=== PATIENT | female | born 1945 | race African-American/Black ===

== ENCOUNTER 2020-09-23 06:28 | Outpatient (CLI) | payer MEDICARE ==
[2020-09-23 11:41] LABS: #Eosinphils 0.1 10x3/uL (0.0-0.5); #Monocytes 0.4 10x3/uL (0.0-1.1); #Neutrophils 4.7 10x3/uL (1.5-8.4); %Basophils 0.6 % (0.0-2.0); %Eosinophils 1.4 % (0.0-6.0); %Lymphocytes 17.2 % (18.0-47.0); %Monocytes 6.6 % (0.0-10.0); %Neutrophils 73.9 % (40.0-75.0); Hemoglobin 12.6 g/dL (12.0-16.0); Mean Corpuscular Hemoglobin 30.4 PG (27.0-33.0); Mean Corpuscular Volume 98.1 fl (80.0-100.0); Mean Platelet Volume 10.4 fl (7.4-10.4); Platelet Count 274 10x3/uL (130-400); RBC Distribution Width 13.6 % (11.5-14.5); Red Blood Cell (RBC) Count 4.15 10x6/uL (3.90-5.20); White Blood Cell (WBC) Count 6.4 10x3/uL (4.5-11.0)
[2020-09-23 11:52] LABS: Anion Gap 16 mmol/L (10-20); BUN (Urea Nitrogen) 17 mg/dL (9.8-20.1); Calc. Creatinine Clearance 0 mL/min (70-130); Calcium 9.7 mg/dL (7.8-10.44); Carbon Dioxide 29 mmol/L (23-31); Chloride 101 mmol/L (98-107); Estimated GFR-MDRD 69; Glucose 208 mg/dL (83-110); Potassium 4.3 mmol/L (3.5-5.1); Sodium 142 mmol/L (136-145)
[2020-09-23 23:43] LABS: SARS-CoV-2 MS2 Positive; SARS-CoV-2 N Gene Negative; SARS-CoV-2 S Gene Negative; SARS-CoV-2 by NAA Not Detected (NotDetected); SARS-CoV-2 orf1ab Negative
== END 2020-09-23 06:29 | disposition home or self-care (01) ==
LOC: LABBT 06:28
PROVIDERS: ATTEND Neurological Surgery
DX: Z01.818 Encounter for other preprocedural examination (principal); Z20.828 Contact with and (suspected) exposure to other viral communicable diseases; G95.9 Disease of spinal cord, unspecified
CPT/HCPCS: 80048; 85025; 93005; U0003; 87635; 93010

== ENCOUNTER 2020-09-26 06:19 | Day surgery (SDC) | payer MEDICARE ==
[2020-09-25 13:43] VITALS: BMI 34.4
--- NOTE | 2020-09-25 22:18 | HP ---
HISTORY OF PRESENT ILLNESS: Ms. Bolton is a very pleasant 75-year-old woman referred to us by her pain management physician Dr. Slaughter at [facility] for evaluation of severe cervical spinal canal stenosis with T2 signal change within the cord. This is mostly found from the C3-C5 for the last few months. 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 She has received epidural steroid injections and states this does seem to have helped some of her symptoms. She reports also some occasional bowel issues though, otherwise feels mostly fine. MRI from [facility] reveals profound central canal stenosis between C3-C5 with signal change from C4-C5 within the cervical spinal cord. PAST MEDICAL HISTORY: Significant for hypercholesterolemia, anemia, osteoarthritis, breast cancer, hypertension, cataracts, diabetes, hypothyroidism. PAST SURGICAL HISTORY: Hysterectomy, cholecystectomy, right mastectomy, cataract resection, and right shoulder rotator cuff repair. CURRENT MEDICATIONS: Aspirin, carvedilol, conjugated estrogens, folate, hydrochlorothiazide, insulin, Invokana, latanoprost, levothyroxine, naproxen, pioglitazone, simvastatin, vitamin B12. ALLERGIES: NO KNOWN DRUG ALLERGIES. PHYSICAL EXAMINATION: Deferred for telehealth visit. 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 PLAN: Dr. Levy met with the patient, reviewed imaging, and advocated for posterior cervical decompression from C3-C5. He explained the risks, benefits, and alternatives to the procedure. The patient expressed understanding and elected to move forward with surgery as discussed. I do believe the patient mentally competent and capable of making medical decisions for herself. We will move forward with surgery as planned. Job ID: [id number]
[2020-09-26] MEDS ORDERED: EPINEPHrine 1 MG/ML AMP ONE (08:42)
[2020-09-26] MEDS ORDERED: Bupivacaine PF 0.5% 30 ML VIAL ONE (08:42)
[2020-09-26] MEDS ORDERED: Fentanyl 100 MCG/2 ML VIAL ONE ×3 (08:44→11:26)
[2020-09-26] MEDS ORDERED: Bacitracin Zinc Ointment 30 gm TUBE ONE (08:56)
[2020-09-26] MEDS ORDERED: Phenylephrine 10 MG/ML VIAL ONE (09:33)
[2020-09-26] MEDS ORDERED: SUGAMMADEX SODIUM 200 MG/2 ML VIAL ONE (10:38)
[2020-09-26] MEDS ORDERED: Promethazine HCl 25 MG/ML VIAL ONE ×2 (11:00→12:38)
[2020-09-26] MEDS ORDERED: Ondansetron PF 4 MG/2 ML Vial ONE ×2 (11:00→12:50)
[2020-09-26] MEDS ORDERED: Promethazine HCl 25 MG/ML VIAL IM PRN (11:02)
[2020-09-26] MEDS ORDERED: HYDROmorphone 2 MG/ML VIAL SLOW IVP PRN (11:02)
[2020-09-26] MEDS ORDERED: Ondansetron HCl/PF 4 MG/2 ML Vial IVP PRN (11:02)
[2020-09-26] MEDS ORDERED: Morphine Sulfate 2 MG/ML SYRINGE SLOW IVP PRN (11:02)
[2020-09-26] MEDS ORDERED: Promethazine HCl 25 MG/ML VIAL SLOW IVP PRN (11:02)
[2020-09-26] MEDS ORDERED: PACU-Morphine 4MG/ML VIAL SLOW IVP PRN (11:02)
[2020-09-26] MEDS ORDERED: tiZANidine HCl 4 MG TAB ONE (11:24)
--- NOTE | 2020-09-26 11:51 | OP ---
DATE OF PROCEDURE: 09/26/2020 [employer] CEO & PRESIDENT: Segun Aldrich PA-C. INDICATION: Prevent neurologic decline. DIAGNOSIS: Cervical spondylotic myelopathy. PROCEDURE PERFORMED: Posterior cervical laminectomy, C3 through C5. ANESTHESIA: General. DESCRIPTION OF PROCEDURE: The patient was brought into the operating room and placed under general anesthesia. A three-point Turner pamela was applied through her head and she was carefully flipped from a supine to a prone position while maintaining neutrality of her neck. The pamela was fixed to the bed. A linear incision was planned along the posterior cervical line with C3 through C5 area. After prepping and draping and after an appropriate preoperative pause, the incision was created. The soft tissues were swept away from midline. A self-retaining retractor was placed in the wound for optimal exposure. After confirming the appropriate level with C-arm fluoroscopy, the spinous processes of C3, C4, and C5 were removed. A high-speed cutting drill bit as well as 1 and 2 mm Kerrisons were used to complete the laminectomy spanning all C3, C4, and C5. After completing the decompression, the wound was irrigated. Hemostasis was maintained throughout. The wound was then closed in anatomic layers, and a pressure dressing was applied. There were no known procedural complications. Job ID: [id number]
[2020-09-26] MEDS ORDERED: Morphine 2 MG/ML VIAL ONE (12:49)
[2020-09-26] MEDS ORDERED: Rocuronium Bromide 10 MG/ML (10ML VIAL) ONE (12:50)
[2020-09-26] MEDS ORDERED: PROPOFOL 200 MG/20 ML VIAL ONE (12:50)
[2020-09-26] MEDS ORDERED: Glycopyrrolate 0.2 MG/ML 5 ML SYRINGE ONE (12:50)
[2020-09-26] MEDS ORDERED: Metoclopramide HCl 10 MG/2 ML VIAL ONE (12:50)
[2020-09-26] MEDS ORDERED: Lidocaine 1% PF 5 ML VIAL ONE (12:50)
[2020-09-26] MEDS ORDERED: Acetaminophen/Codeine 30-300mg Tablet ONE (15:22)
== END 2020-09-26 17:55 | disposition home or self-care (01) ==
LOC: SDC 06:19
PROVIDERS: ATTEND Neurological Surgery
PROC: 01N10ZZ Release Cervical Nerve, Open Approach (ICD-10-PCS; principal; 2020-09-26)
DX: M47.12 Other spondylosis with myelopathy, cervical region (principal); M48.02 Spinal stenosis, cervical region; E78.00 Pure hypercholesterolemia, unspecified; M19.90 Unspecified osteoarthritis, unspecified site; I10 Essential (primary) hypertension; E11.9 Type 2 diabetes mellitus without complications; E03.9 Hypothyroidism, unspecified; Z79.4 Long term (current) use of insulin; Z79.82 Long term (current) use of aspirin; Z79.899 Other long term (current) drug therapy; Z88.8 Allergy status to other drugs, medicaments and biological substances
CPT/HCPCS: 63045; 63048 ×2; 76000; 82962; J2270; 36416; J0171; J0690; J2370; J2405; J2550; J2704; J2765; J3010; S0020

== ENCOUNTER 2021-05-19 15:13 | Outpatient (CLI) | payer MEDICARE | END 2021-05-19 15:14 | disposition home or self-care (01) | LOC: TBSIIMAG 15:13 | PROVIDERS: ATTEND Neurological Surgery | DX: M54.2 Cervicalgia (principal); M47.812 Spondylosis without myelopathy or radiculopathy, cervical region | CPT/HCPCS: 72040 ==

== ENCOUNTER 2023-10-19 11:10 | Outpatient (CLI) | payer MEDICARE ==
[2023-10-19 13:58] LABS: Hematocrit 40.7 % (34.9-44.5); Hemoglobin 12.4 g/dL (12.0-15.5); Mean Corpuscular HGB CONC 30.5 g/dL (32.0-36.0); Mean Corpuscular Hemoglobin 29.9 pg (27.0-33.0); Mean Corpuscular Volume 98.1 fl (81.6-98.3); Mean Platelet Volume 10.3 fl (7.4-10.4); Platelet Count 292 10x3/uL (150-450); RBC Distribution Width 13.8 % (11.5-14.5); Red Blood Cell (RBC) Count 4.15 10x6/uL (3.90-5.03); White Blood Cell (WBC) Count 6.9 10x3/uL (3.5-10.5)
[2023-10-19 14:18] LABS: Anion Gap 14 mmol/L (10-20); BUN (Urea Nitrogen) 16 mg/dL (9.8-20.1); Calc. Creatinine Clearance 0 mL/min (70-130); Calcium 9.6 mg/dL (7.8-10.44); Carbon Dioxide 24 mmol/L (23-31); Chloride 107 mmol/L (98-107); Estimated GFR 77; Glucose 155 mg/dL (83-110); Potassium 4.7 mmol/L (3.5-5.1); Sodium 140 mmol/L (136-145)
== END 2023-10-19 11:11 | disposition home or self-care (01) ==
LOC: LABBT 11:10
PROVIDERS: ATTEND Neurological Surgery
DX: Z01.818 Encounter for other preprocedural examination (principal); M43.16 Spondylolisthesis, lumbar region
CPT/HCPCS: 80048; 85027; 93005; 93010

== ENCOUNTER 2023-12-02 07:17 | Day surgery (SDC) | payer MEDICARE ==
[2023-10-19 12:35] VITALS: BMI 33.5
[2023-12-02] MEDS ORDERED: Thrombin 5000 UNITS/5 ML VIAL ONE (09:15)
[2023-12-02] MEDS ORDERED: EPINEPHrine 1 MG/ML VIAL ONE (09:15)
[2023-12-02] MEDS ORDERED: Bupivacaine PF 0.5% 30 ML VIAL ONE (09:15)
[2023-12-02] MEDS ORDERED: Sodium Chloride 0.9% 100 ML ONE ×2 (09:20→14:24)
[2023-12-02] MEDS ORDERED: CEFAZOLIN 2 GM VIAL ONE ×2 (09:20→14:24)
[2023-12-02] MEDS ORDERED: Famotidine/PF 20 mg/2ml Vial ONE (09:38)
[2023-12-02] MEDS ORDERED: Norepinephrine 4 MG/4 ML VIAL ONE (09:38)
[2023-12-02] MEDS ORDERED: Etomidate 40 MG (20 mL) VIAL ONE (09:39)
[2023-12-02] MEDS ORDERED: Lidocaine 2% PF 5 ML VIAL ONE (09:43)
[2023-12-02] MEDS ORDERED: fentaNYL 50 mcg/mL 1 mL Vial ONE ×2 (09:43→10:25)
[2023-12-02] MEDS ORDERED: PROPOFOL 20 ML ONE (09:43)
[2023-12-02] MEDS ORDERED: Rocuronium Bromide 10 MG/ML (10ML VIAL) ONE (09:45)
[2023-12-02] MEDS ORDERED: Ketorolac Tromethamine 30 MG (1 mL) VIAL ONE (10:22)
[2023-12-02] MEDS ORDERED: Ondansetron PF 4 MG/2 ML Vial ONE (10:22)
[2023-12-02] MEDS ORDERED: Dexamethasone 4 mg/ml Vial ONE (10:22)
[2023-12-02] MEDS ORDERED: SUGAMMADEX SODIUM 200 MG/2 ML VIAL ONE (10:23)
[2023-12-02] MEDS ORDERED: fentaNYL PF 100 MCG/2 ML SYRINGE ONE (12:41)
[2023-12-02] MEDS ORDERED: HYDROmorphone 0.5 MG/0.5 ML SYRINGE ONE ×2 (13:09→13:23)
== END 2023-12-02 15:30 | disposition home or self-care (01) ==
LOC: SDC 07:17
PROVIDERS: ATTEND Neurological Surgery
PROC: 0SG0071 Fusion of Lumbar Vertebral Joint with Autologous Tissue Substitute, Posterior Approach, Posterior Column, Open Approach (ICD-10-PCS; principal; 2023-12-02)
DX: M43.16 Spondylolisthesis, lumbar region (principal); M48.062 Spinal stenosis, lumbar region with neurogenic claudication; M54.16 Radiculopathy, lumbar region; D64.9 Anemia, unspecified; I10 Essential (primary) hypertension; H26.9 Unspecified cataract; E11.9 Type 2 diabetes mellitus without complications; E78.5 Hyperlipidemia, unspecified; E03.9 Hypothyroidism, unspecified; Z87.59 Personal history of other complications of pregnancy, childbirth and the puerperium; Z90.710 Acquired absence of both cervix and uterus; Z90.49 Acquired absence of other specified parts of digestive tract; Z90.11 Acquired absence of right breast and nipple; Z85.3 Personal history of malignant neoplasm of breast; Z98.890 Other specified postprocedural states; Z79.890 Hormone replacement therapy; Z79.82 Long term (current) use of aspirin; Z79.899 Other long term (current) drug therapy
CPT/HCPCS: 20930; 20936; 22612; 22840; 63042; 82962; C1713 ×2; C1889 ×2; J0171; J3010; 36416; J1100; J1170; J1885; J2001; J2405; J2704; J3490; S0020; S0028